=== PATIENT | female | born 1980 | race Caucasian/White ===

== ENCOUNTER 2021-08-25 16:07 | Outpatient (CLI) | payer OTHER | END 2021-08-25 16:08 | disposition home or self-care (01) | LOC: ULT 16:07 | PROVIDERS: ATTEND Specialist | DX: N18.6 End stage renal disease (principal) | CPT/HCPCS: 93970 ==

== ENCOUNTER 2021-08-26 11:53 | Outpatient (CLI) | payer OTHER ==
[2021-08-26 13:17] LABS: #Basophils 0.1 10x3/uL (0.0-0.2); #Eosinphils 0.2 10x3/uL (0.0-0.5); #Monocytes 0.4 10x3/uL (0.0-1.1); #Neutrophils 4.6 10x3/uL (1.5-8.4); %Basophils 0.8 % (0.0-2.0); %Eosinophils 2.3 % (0.0-6.0); %Lymphocytes 20.7 % (18.0-47.0); %Monocytes 5.3 % (0.0-10.0); %Neutrophils 70.3 % (40.0-75.0); Hemoglobin 12.5 g/dL (12.0-15.5); Mean Corpuscular HGB CONC 32.1 g/dL (32.0-36.0); Mean Corpuscular Hemoglobin 28.7 pg (27.0-33.0); Mean Corpuscular Volume 89.4 fl (81.6-98.3); Mean Platelet Volume 10.5 fl (7.4-10.4); Platelet Count 249 10x3/uL (150-450); RBC Distribution Width 12.4 % (11.5-14.5); Red Blood Cell (RBC) Count 4.35 10x6/uL (3.90-5.03); White Blood Cell (WBC) Count 6.6 10x3/uL (3.5-10.5)
[2021-08-26 13:30] LABS: Anion Gap 14 mmol/L (10-20); BUN (Urea Nitrogen) 18 mg/dL (7.0-18.7); Calc. Creatinine Clearance 0 mL/min (70-130); Calcium 9.2 mg/dL (7.8-10.44); Carbon Dioxide 23 mmol/L (22-29); Chloride 105 mmol/L (98-107); Glucose 96 mg/dL (70-105); Potassium 4.6 mmol/L (3.5-5.1); Sodium 137 mmol/L (136-145)
[2021-08-26 21:58] LABS: SARS-CoV-2 PCR by NAA Not Detected (NotDetected)
== END 2021-08-26 11:54 | disposition home or self-care (01) ==
LOC: LABBT 11:53
PROVIDERS: ATTEND Family Medicine
DX: Z01.812 Encounter for preprocedural laboratory examination (principal); N18.6 End stage renal disease; Z20.822 Contact with and (suspected) exposure to COVID-19
CPT/HCPCS: 80048; 85025; U0003; U0005

== ENCOUNTER 2021-08-27 07:43 | Day surgery (SDC) | payer OTHER ==
[2021-08-26 11:08] VITALS: BMI 36.6
[2021-08-27] MEDS ORDERED: Acetaminophen 500 MG TAB ONE (08:43)
[2021-08-27] MEDS ORDERED: ceFAZolin 2 GM/DEX 5% 100 ML BAG ONE (08:43)
[2021-08-27] MEDS ORDERED: Heparin 10,000 UNITS/ 10 ML VIAL ONE (09:54)
[2021-08-27] MEDS ORDERED: Bupivacaine 0.25% HCL 30 ML VIAL ONE (09:54)
[2021-08-27] MEDS ORDERED: Heparin 5,000 UNITS/ML VIAL ONE (09:54)
[2021-08-27] MEDS ORDERED: Protamine Sulfate 50 MG/5 ML VIAL ONE (09:54)
[2021-08-27] MEDS ORDERED: Lidocaine 1% w/Epinephrine 1:100K 20 ML VIAL ONE (09:54)
[2021-08-27] MEDS ORDERED: Bupivacaine HCl 0.5%/Epinephrine 1:200,000/PF 30 ml Vial ONE (10:00)
[2021-08-27] MEDS ORDERED: Fentanyl 100 MCG/2 ML VIAL ONE (10:14)
[2021-08-27] MEDS ORDERED: Propofol 500 MG/50 ML VIAL ONE (10:14)
[2021-08-27] MEDS ORDERED: Midazolam HCl 2 mg/2 ml Vial ONE (10:14)
[2021-08-27] MEDS ORDERED: Sodium Chloride 0.9% 10 ML ONE (10:18)
== END 2021-08-27 14:15 | disposition home or self-care (01) ==
LOC: SDC 07:43
PROVIDERS: ATTEND Specialist
PROC: 05HM33Z Insertion of Infusion Device into Right Internal Jugular Vein, Percutaneous Approach (ICD-10-PCS; principal; 2021-08-27)
PROC: 031C0ZF Bypass Left Radial Artery to Lower Arm Vein, Open Approach (ICD-10-PCS; principal; 2021-08-27)
DX: Q61.3 Polycystic kidney, unspecified (principal); I12.9 Hypertensive chronic kidney disease with stage 1 through stage 4 chronic kidney disease, or unspecified chronic kidney disease; N18.4 Chronic kidney disease, stage 4 (severe); Z86.16 Personal history of COVID-19; Z79.899 Other long term (current) drug therapy; Z88.5 Allergy status to narcotic agent
CPT/HCPCS: 71045; C1752; J1644; J2250; J2704; J2720; J3010; S0020

== ENCOUNTER 2022-11-26 08:07 | Inpatient (IN) | payer BC, MEDICARE ==
[2022-11-26 09:01] LABS: #Lymphocytes 0.5 thou/uL (1.20-3.40); #Monocytes 0.2 thou/uL (0.11-0.59); %Basophils 0.4 % (0.0-1.0); %Eosinophils 0.6 % (0.0-10.0); %Monocytes 2.4 % (0.0-10.0); %Neutrophils 89.6 % (42.0-75.0); Hemoglobin 11.6 g/dL (12.0-16.0); Mean Corpuscular HGB CONC 32.9 g/dL (32.0-36.0); Mean Corpuscular Hemoglobin 28.9 pg (27.0-31.0); Mean Corpuscular Volume 87.8 fl (78.0-98.0); Mean Platelet Volume 6.2 fL (7.4-10.4); Platelet Count 248 10x3/uL (130-400); RBC Distribution Width 13.2 % (11.5-14.5); Red Blood Cell (RBC) Count 4.01 mill/uL (4.20-5.40); White Blood Cell (WBC) Count 7.8 10x3/uL (4.8-10.8)
[2022-11-26] MEDS ORDERED: Fentanyl 100 MCG/2 ML VIAL ONE ×3 (09:01→14:29)
[2022-11-26 09:27] LABS: ALT (SGPT) 24 U/L (8-55); AST (SGOT) 12 U/L (5-34); Alkaline Phosphatase 36 U/L (40-110); Anion Gap 18 mmol/L (10-20); BUN (Urea Nitrogen) 36 mg/dL (7.0-18.7); Bilirubin, Total 0.7 mg/dL (0.2-1.2); Calc. Creatinine Clearance 0 mL/min (70-130); Calcium 8.6 mg/dL (7.8-10.44); Carbon Dioxide 21 mmol/L (22-29); Chloride 85 mmol/L (98-107); Estimated GFR 3; Globulin 2.1 g/dL (2.4-3.5); Glucose 93 mg/dL (70-105); Protein, Total 5.1 g/dL (6.0-8.3); Sodium 121 mmol/L (136-145)
[2022-11-26] MEDS ORDERED: diphenhydrAMINE 50 MG/ML VIAL ONE (09:41)
[2022-11-26] MEDS ORDERED: Ondansetron PF 4 MG/2 ML Vial IVP PRN (10:34)
[2022-11-26] MEDS ORDERED: Acetaminophen 325 MG TAB PO PRN (10:34)
[2022-11-26] MEDS ORDERED: Gabapentin 300 MG CAP PO PRN (10:34)
[2022-11-26] MEDS ORDERED: ALPRAZolam 0.25 MG TAB PO PRN (10:40)
[2022-11-26] MEDS ORDERED: diphenhydrAMINE 50 MG/ML VIAL IVP PRN (10:53)
[2022-11-26] MEDS: Fentanyl 100 MCG/2 ML VIAL SLOW IVP PRN ×6 (11:54→23:46)
[2022-11-26 12:01] LABS: WBC/Nucleated-Auto (BF) 5640 /cu.mm
[2022-11-26 12:02] LABS: BF Color Yellow; Body Fluid Source Dialysate Fluid; Clarity Hazy (Clear); RBC Count-Automated (BF) 220 /cu.mm; Tube # EDTA
[2022-11-26] MEDS: Sodium Chloride 0.9% 1,000 ML IV SCH (12:20)
[2022-11-26 12:34] LABS: BF Segmented Neutrophils 87 %; Cell Count Non Hematic 8 %; Eosinophils 2 %; Lymphocytes 1 %
[2022-11-26] MEDS ORDERED: Potassium Chloride 20 MEQ/100 ML PREMIX BAG ONE (12:36)
[2022-11-26] MEDS: Potassium Chloride 20 MEQ in Premix Bag 1 BAG IVPB SCH ×2 (12:45→16:30)
[2022-11-26] MEDS: Heparin 5,000 UNITS/ML VIAL SC SCH ×2 (16:21→21:02)
[2022-11-26 16:53] VITALS: BMI 34.6
[2022-11-26] MEDS ORDERED: Vancomycin Dose by Levels Sliding Scale (Wt 71-99) FS SCH (18:00)
[2022-11-27] MEDS: Fentanyl 100 MCG/2 ML VIAL SLOW IVP PRN ×5 (02:21→21:44)
[2022-11-27 04:57] LABS: #Eosinphils 0.1 thou/uL (0.0-0.7); #Lymphocytes 1.3 thou/uL (1.20-3.40); #Monocytes 0.4 thou/uL (0.11-0.59); %Basophils 0.3 % (0.0-1.0); %Eosinophils 1.1 % (0.0-10.0); %Lymphocytes 19.2 % (21.0-51.0); %Monocytes 5.9 % (0.0-10.0); %Neutrophils 73.5 % (42.0-75.0); Hemoglobin 11.7 g/dL (12.0-16.0); Mean Corpuscular HGB CONC 32.3 g/dL (32.0-36.0); Mean Corpuscular Hemoglobin 28.7 pg (27.0-31.0); Mean Corpuscular Volume 88.9 fl (78.0-98.0); Mean Platelet Volume 6.6 fL (7.4-10.4); Platelet Count 252 10x3/uL (130-400); RBC Distribution Width 13.1 % (11.5-14.5); Red Blood Cell (RBC) Count 4.08 mill/uL (4.20-5.40); White Blood Cell (WBC) Count 6.9 10x3/uL (4.8-10.8)
[2022-11-27 05:15] LABS: Anion Gap 15 mmol/L (10-20); BUN (Urea Nitrogen) 36 mg/dL (7.0-18.7); Calc. Creatinine Clearance 9 mL/min (70-130); Calcium 8.4 mg/dL (7.8-10.44); Carbon Dioxide 23 mmol/L (22-29); Chloride 85 mmol/L (98-107); Estimated GFR 3; Glucose 74 mg/dL (70-105); Phosphorus 4.1 mg/dL (2.3-4.7); Potassium 3.2 mmol/L (3.5-5.1); Sodium 120 mmol/L (136-145)
[2022-11-27] MEDS: Sodium Chloride 0.9% 1,000 ML IV SCH (08:07)
[2022-11-27] MEDS ORDERED: Carvedilol 3.125 MG TAB PO SCH (08:15)
[2022-11-27] MEDS: HYDROcodone/Acetaminophen 5/325 mg Tablet PO PRN ×3 (08:47→18:20)
[2022-11-27] MEDS: Citalopram 20 MG TAB PO SCH (08:54)
[2022-11-27] MEDS: Sevelamer Carbonate 800 MG TAB PO SCH ×3 (08:54→16:58)
[2022-11-27] MEDS: Docusate 100 MG CAP PO SCH ×2 (08:54→21:37)
[2022-11-27] MEDS: Ezetimibe 10 MG TAB PO SCH (08:54)
[2022-11-27] MEDS: diphenhydrAMINE 25 MG CAP PO SCH ×3 (08:55→21:37)
[2022-11-27] MEDS: Bupropion 150 MG XL TAB PO SCH (08:55)
[2022-11-27] MEDS: Ondansetron ODT 4 MG TAB PO SCH ×3 (08:55→21:37)
[2022-11-27] MEDS: Potassium Chloride 10 MEQ in Premix Bag 1 BAG IVPB SCH ×2 (08:56→10:57)
[2022-11-27] MEDS: Heparin 5,000 UNITS/ML VIAL SC SCH ×3 (08:57→21:37)
[2022-11-27] MEDS ORDERED: Heparin 10,000 UNITS/ 10 ML VIAL ONE (11:53)
[2022-11-27] MEDS: Carvedilol 3.125 MG TAB PO SCH (16:58)
[2022-11-28] MEDS: Ondansetron ODT 4 MG TAB PO SCH ×6 (01:55→19:51)
[2022-11-28] MEDS: diphenhydrAMINE 25 MG CAP PO SCH ×4 (01:55→19:51)
[2022-11-28] MEDS: Fentanyl 100 MCG/2 ML VIAL SLOW IVP PRN ×4 (01:55→19:51)
[2022-11-28 05:04] LABS: Anion Gap 11 mmol/L (10-20); BUN (Urea Nitrogen) 32 mg/dL (7.0-18.7); Calc. Creatinine Clearance 9 mL/min (70-130); Calcium 7.8 mg/dL (7.8-10.44); Carbon Dioxide 24 mmol/L (22-29); Chloride 86 mmol/L (98-107); Estimated GFR 4; Glucose 75 mg/dL (70-105); Potassium 3.2 mmol/L (3.5-5.1)
[2022-11-28 05:12] LABS: Sodium 118 mmol/L (136-145)
[2022-11-28] MEDS: Cefepime 2 GM in Sodium Chloride 0.9% 100 ML IVPB SCH (08:50)
[2022-11-28] MEDS: Heparin 5,000 UNITS/ML VIAL SC SCH ×3 (08:51→19:51)
[2022-11-28] MEDS: Sevelamer Carbonate 800 MG TAB PO SCH ×3 (08:51→17:22)
[2022-11-28] MEDS: Bupropion 150 MG XL TAB PO SCH (08:51)
[2022-11-28] MEDS: Citalopram 20 MG TAB PO SCH (08:51)
[2022-11-28] MEDS: Docusate 100 MG CAP PO SCH ×2 (08:51→19:51)
[2022-11-28] MEDS: Ezetimibe 10 MG TAB PO SCH (08:51)
[2022-11-28] MEDS: Carvedilol 3.125 MG TAB PO SCH ×2 (08:51→17:25)
[2022-11-28 10:01] LABS: Magnesium 1.7 mg/dL (1.6-2.6); Vancomycin, Random 23.3 ug/mL (See Comment)
[2022-11-28 10:21] LABS: HBSAg Index 0.22 S/CO (0-0.99); Hep B Surf Ag Non-Reactive S/CO (NonReactive)
[2022-11-28] MEDS: Potassium Chloride 20 MEQ in Premix Bag 1 BAG IVPB SCH ×2 (10:37→13:21)
[2022-11-28 11:50] LABS: HBSAB Concentration 88.87 mIU/mL; Hep B Surf AB Reactive (NonReactive)
[2022-11-28] MEDS ORDERED: Heparin 10,000 UNITS/ 10 ML VIAL ONE ×2 (12:08)
[2022-11-28] MEDS ORDERED: Potassium Chloride 20 MEQ in Premix Bag 1 BAG IVPB SCH (15:00)
[2022-11-29] MEDS: diphenhydrAMINE 25 MG CAP PO SCH ×4 (01:45→20:18)
[2022-11-29] MEDS: Ondansetron ODT 4 MG TAB PO SCH ×6 (01:45→20:18)
[2022-11-29 06:07] LABS: Anion Gap 14 mmol/L (10-20); BUN (Urea Nitrogen) 30 mg/dL (7.0-18.7); Calc. Creatinine Clearance 8 mL/min (70-130); Calcium 8.7 mg/dL (7.8-10.44); Carbon Dioxide 23 mmol/L (22-29); Chloride 85 mmol/L (98-107); Estimated GFR 4; Glucose 77 mg/dL (70-105); Potassium 3.5 mmol/L (3.5-5.1)
[2022-11-29 06:12] LABS: Sodium 118 mmol/L (136-145)
[2022-11-29] MEDS: Citalopram 20 MG TAB PO SCH (09:30)
[2022-11-29] MEDS: Sevelamer Carbonate 800 MG TAB PO SCH ×3 (09:30→17:58)
[2022-11-29] MEDS: Bupropion 150 MG XL TAB PO SCH (09:30)
[2022-11-29] MEDS: Carvedilol 3.125 MG TAB PO SCH ×2 (09:30→17:58)
[2022-11-29] MEDS: Docusate 100 MG CAP PO SCH ×2 (09:31→20:18)
[2022-11-29] MEDS: Ezetimibe 10 MG TAB PO SCH (09:31)
[2022-11-29] MEDS: Heparin 5,000 UNITS/ML VIAL SC SCH ×3 (09:32→20:17)
[2022-11-29] MEDS: Sodium Chloride 1 GM TAB PO SCH ×3 (09:32→20:18)
[2022-11-29] MEDS: Promethazine HCl 12.5 MG in Sodium Chloride 0.9% 50 ML IVPB PRN (11:09)
[2022-11-29] MEDS ORDERED: Heparin 10,000 UNITS/ 10 ML VIAL ONE (11:54)
[2022-11-29] MEDS: Fentanyl 100 MCG/2 ML VIAL SLOW IVP PRN ×2 (12:11→20:13)
[2022-11-29 19:35] LABS: BF Color Colorless; BF RBC Count - Manual 5 /cu.mm; BF WBC/Nonhematics Ct.-Manual 48 /cu.mm; Body Fluid Source Peritoneal Fluid; Clarity Clear (Clear); Tube # EDTA
[2022-11-29 19:56] LABS: BF Segmented Neutrophils 22 %; Cell Count Non Hematic 73 %; Eosinophils 3 %; Lymphocytes 1 %
[2022-11-30] MEDS: Ondansetron ODT 4 MG TAB PO SCH ×6 (01:32→20:14)
[2022-11-30] MEDS: diphenhydrAMINE 25 MG CAP PO SCH ×4 (01:32→20:16)
[2022-11-30 06:05] LABS: Anion Gap 14 mmol/L (10-20); BUN (Urea Nitrogen) 30 mg/dL (7.0-18.7); Calc. Creatinine Clearance 8 mL/min (70-130); Calcium 8.2 mg/dL (7.8-10.44); Carbon Dioxide 23 mmol/L (22-29); Chloride 93 mmol/L (98-107); Estimated GFR 4; Glucose 71 mg/dL (70-105); Potassium 3.5 mmol/L (3.5-5.1); Sodium 126 mmol/L (136-145)
[2022-11-30] MEDS: Sodium Chloride 1 GM TAB PO SCH ×3 (08:02→20:14)
[2022-11-30] MEDS: Citalopram 20 MG TAB PO SCH (08:03)
[2022-11-30] MEDS: Sevelamer Carbonate 800 MG TAB PO SCH ×3 (08:03→17:02)
[2022-11-30] MEDS: Bupropion 150 MG XL TAB PO SCH (08:03)
[2022-11-30] MEDS: Docusate 100 MG CAP PO SCH ×2 (08:03→20:14)
[2022-11-30] MEDS: Ezetimibe 10 MG TAB PO SCH (08:03)
[2022-11-30] MEDS: Cefepime 2 GM in Sodium Chloride 0.9% 100 ML IVPB SCH ×2 (08:04→10:21)
[2022-11-30] MEDS: Heparin 5,000 UNITS/ML VIAL SC SCH ×3 (08:04→20:16)
[2022-11-30] MEDS: Carvedilol 3.125 MG TAB PO SCH ×3 (08:04→17:04)
[2022-11-30] MEDS: Cefepime 1 GM in Sodium Chloride 0.9% 100 ML IVPB SCH (08:28)
[2022-11-30] MEDS ORDERED: Vancomycin HCl 750 MG in Sodium Chloride 0.9% 250 ML 250 ML IVPB SCH (10:00)
[2022-11-30] MEDS ORDERED: Heparin 10,000 UNITS/ 10 ML VIAL ONE (10:09)
[2022-11-30] MEDS: Promethazine HCl 12.5 MG in Sodium Chloride 0.9% 50 ML IVPB PRN (17:52)
[2022-11-30] MEDS ORDERED: Simethicone Chewable 80 MG TAB PO PRN (21:02)
[2022-12-01 00:06] VITALS: TEMP 98.2
[2022-12-01] MEDS: diphenhydrAMINE 25 MG CAP PO SCH ×3 (01:53→16:25)
[2022-12-01] MEDS: Ondansetron ODT 4 MG TAB PO SCH ×4 (01:53→13:42)
[2022-12-01] MEDS: Carvedilol 3.125 MG TAB PO SCH (09:25)
[2022-12-01] MEDS: Heparin 5,000 UNITS/ML VIAL SC SCH ×2 (09:26→16:25)
[2022-12-01] MEDS: Bupropion 150 MG XL TAB PO SCH (09:27)
[2022-12-01] MEDS: Sevelamer Carbonate 800 MG TAB PO SCH ×2 (09:27→13:42)
[2022-12-01] MEDS: Citalopram 20 MG TAB PO SCH (09:27)
[2022-12-01] MEDS: Ezetimibe 10 MG TAB PO SCH (09:27)
[2022-12-01] MEDS: Sodium Chloride 1 GM TAB PO SCH ×3 (09:27→16:25)
[2022-12-01] MEDS: Cefepime 1 GM in Sodium Chloride 0.9% 100 ML IVPB SCH (09:28)
[2022-12-01] MEDS: Docusate 100 MG CAP PO SCH (09:37)
[2022-12-01 11:51] LABS: Anion Gap 15 mmol/L (10-20); BUN (Urea Nitrogen) 33 mg/dL (7.0-18.7); Calc. Creatinine Clearance 7 mL/min (70-130); Calcium 8.6 mg/dL (7.8-10.44); Carbon Dioxide 24 mmol/L (22-29); Chloride 93 mmol/L (98-107); Estimated GFR 3; Glucose 100 mg/dL (70-105); Potassium 3.2 mmol/L (3.5-5.1); Sodium 129 mmol/L (136-145)
[2022-12-01 15:59] VITALS: BP 132/89
== END 2022-12-01 16:15 | disposition home or self-care (01) | DRG 371 ==
LOC: ERS 08:07 → ERHOLD 10:05 → OBSVTOIN 10:34 → 2NO 15:51 → MSONC 11-28 15:35
PROVIDERS: ADMIT Family Medicine; ATTEND Hospitalist
PROC: 5A1D70Z Performance of Urinary Filtration, Intermittent, Less than 6 Hours Per Day (ICD-10-PCS; principal; 2022-11-26)
DX: K65.2 Spontaneous bacterial peritonitis (principal); N18.6 End stage renal disease; E87.1 Hypo-osmolality and hyponatremia; E87.20 Acidosis, unspecified; Z20.822 Contact with and (suspected) exposure to COVID-19; Z66 Do not resuscitate; F41.9 Anxiety disorder, unspecified; F32.A Depression, unspecified; E78.5 Hyperlipidemia, unspecified; E87.6 Hypokalemia; D63.1 Anemia in chronic kidney disease; E88.09 Other disorders of plasma-protein metabolism, not elsewhere classified; Z88.6 Allergy status to analgesic agent; Z79.899 Other long term (current) drug therapy; Z99.2 Dependence on renal dialysis
CPT/HCPCS: 36415; 80048; 80053; 80202; 83735; 84100; 85025; 85060; 86706; 87040; 87070; 87081; 87102; 87205; 87340; 89051; 90945; 93005; 96374; 96375; G0257; J0692; J1200; J1644; J2405; J2550; J3010; J3370; J3480; J3490; J7050; Q0162; U0003; U0005